=== PATIENT | male | born 1985 | race American Indian/Alaskan Native ===

== ENCOUNTER 2019-12-27 12:06 | Emergency (ER) | payer OTHER ==
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
[2019-12-27 20:28] VITALS: BP 124/80
== END 2019-12-27 19:38 | disposition home or self-care (01) ==
LOC: ED 12:06
DX: M25.561 Pain in right knee (principal); M54.5 Low back pain; M79.605 Pain in left leg; Z98.890 Other specified postprocedural states; Z79.899 Other long term (current) drug therapy; V49.59XA Passenger injured in collision with other motor vehicles in traffic accident, initial encounter; Y93.89 Activity, other specified; Y92.410 Unspecified street and highway as the place of occurrence of the external cause; Y99.8 Other external cause status
CPT/HCPCS: 72070; 72100